=== PATIENT | female | born 1945 | race Caucasian/White ===

== ENCOUNTER 2021-09-07 12:27 | Observation (INO) | payer OTHER ==
--- OUTSIDE RECORDS SUMMARY | 2021-09-07 14:31 | XMS REPORT | Continuity of Care Document ---
:1945 Author Organization [facility] t Address [address] [place] [address] Care Team Providers Name Role Phone Shield Attending Clinician Unavailable Obisesan_adekunrossana Attending Clinician Unavailable PATEL_NILESH Attending Clinician Unavailable DERESKA Attending Clinician Unavailable Shield Admitting Clinician Unavailable Obisesan_adekunbi Admitting Clinician Unavailable PATEL_NILESH Admitting Clinician Unavailable Payers Payer Name Policy Type Policy Number Effective Date Expiration Date S adin [facility] [id number] [facility] [id number] (PPO) [employer] (MEDICARE [id number] REPLACEMENT/ADVANTAGE - PPO) [employer] (PPO) [id number] Problems Condition Condition Condition Status Onset Resolution Last Treating Co mments Source Name Details Category Date Date Treatment Clinician Date Diabetes Diabetes Problem Active [facility] [facility] mellitus Mellitus 02[facility]02 [facility] Hyperlipid Hyperlipid Problem Active [facility] emia emia 02-02 da 00:[facility] Peripheral Peripheral Problem Active [facility] vascular Vascular da disease Disease Medical Group Acute Acute Problem Active [facility] maxillary Maxillary da sinusitis Sinusitis Medi hossein Group Bacterial Bacterial Problem Active [facility] upper Upper da respirator Respirator Me dical y y Group infection Infection Upper Upper Problem Active [facility] respirator Respirator da y y Medical infection Infection Grou p Acute Acute Problem Active [facility] bronchitis Bronchitis [facility] Medical Group Sinusitis Sinusitis Problem Active [facility] Allergic Allergic Problem Active [facility] rhinitis Rhinitis [facility] Medical Group Bronchitis Bronchitis Problem Active [facility] Gastroesop Gastroesop Problem Active M [facility] hageal hageal da reflux Reflux Medical disease Disease Group Chronic Chronic Problem Active [facility] urinary Urinary da tract Tract Medical infection Infection Grou p Urinary Urinary Problem Active [place] tract Tract da infectious Infectious Me dical disease Disease Group Blood in Blood in Problem Active [facility] urine Urine da Medical Group Lesion of Lesion of Problem Active [facility] skin of Skin of da face Face Medical Group Osteoarthr Osteoarthr Problem Active [facility] itis of itis of da hip Hip Medical Group Osteoarthr Osteoarthr Problem Active [facility] itis of itis of da knee Knee Medical Group Bursitis Bursitis Problem Active [facility] of hip of Hip [facility] Medical Group Vertigo Vertigo Problem Active [facility] Fever Fever Problem Active [facility] Fatigue Fatigue Problem Active [facility] Paresthesi Paresthesi Problem Active [facility] a of skin a of Skin da Medical Group Eruption Eruption Problem Active [facility] Cough Cough Problem Active [facility] Chest pain Chest Pain Problem Active [facility] Diarrhea Diarrhea Problem Active [facility] Greater Greater Problem Active [facility] trochanter Trochanter da ic pain ic Pain Medical syndrome Syndrome Group Herpes Herpes Problem Active [facility] zoster Zoster [facility] Group Type 2 Type 2 Problem Active [facility] diabetes Diabetes da mellitus Mellitus Medica l Group Hyperchole Hyperchole Problem Active [facility] sterolemia sterolemia da Medical Group Carpal Carpal Problem Active [facility] tunnel Tunnel da syndrome Syndrome Medica l Group Neuropathy Neuropathy Problem Active [facility] due to Due to da diabetes Diabetes Medica l mellitus Mellitus Group Essential Essential Problem Active [facility] hypertensi Hypertensi da on on Medical Group Adjustment Adjustment Problem Active [facility] disorder Disorder da with with [facility] anxious Anxious al mood Mood Health Outreac h Program 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 [facility] depression Depression al Health [facility] 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 Anxiety da and and [facility] depressive Depressive al disorder Disorder Health Outreac h Program Hypertensi Hypertensi Problem Active [facility] ve ve da disorder Disorder [facility] Heart Heart Problem Active [facility] disease Disease da [facility] Gastric Gastric Problem Active [facility] reflux Reflux da [facility] Recurrent Recurrent Problem Active [facility] urinary Urinary da tract Tract [facility] infection Infection al [facility] 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 Vagina da [facility] History of History of Problem Active [facility] arthritis Arthritis da [facility] Obesity Obesity Problem Active [place] Allergies, Adverse Reactions, Alerts Allergy Allergy Status Severity Reaction(s) Onset Inactive Treating Comm ents Source Name Type Date Date Clinician Meperidi Allergy Active [place] ne to da substanc [facility] Demerol Allergy Active Severe Respiratory [facility] to distress da substanc Medical e Group Demerol drug Active Univers TABS allergy ity of [place] [facility] Family History Family Member Diagnosis Comments Start Date Stop Date Source Unknown Family Family history of Family History [facility] Member cardiac disorder [place] [facility] Unknown Family Family history of Family History [facility] Member essential [place] [facility] hypertension Unknown Family Family history of Family History [facility] Member Pelvic prolapse [place] [facility] Unknown Family Family history of Family History [facility] Member Fecal incontinence [place] [facility] Unknown Family Family history of Family History [facility] Member Urinary [place] [facility] incontinence Social History Smoking Status Start Date Stop Date Source Former Smoker [facility] Medications Ordered Filled Start Stop Current Ordering Indication Dosage Frequency Signature Comments Components Source Medication Medication Date Date Medication? Clinician (SIG) Name Name nitrofurant nitrofurant No nitrofuran [place] oin oin toin da monohydrate monohydrate monohydrat Medical /macrocryst /macrocryst e/macrocry Group als 100 mg als 100 mg stals 100 capsule capsule mg capsule TAKE 1 TAKE 1 TAKE 1 CAPSULE CAPSULE CAPSULE EVERY 12 EVERY 12 EVERY 12 HOURS BY HOURS BY HOURS BY ORAL ROUTE ORAL ROUTE ORAL ROUTE FOR 5 DAYS. FOR 5 DAYS. FOR 5 DAYS. Nitrostat Nitrostat No Nitrostat [facility] 0.4 mg 0.4 mg 0.4 mg da sublingual sublingual sublingual Medical tablet tablet tablet Group olmesartan olmesartan No olmesartan [place] 40 mg 40 mg 40 mg da tablet TAKE tablet TAKE tablet Medical 1 TABLET BY 1 TABLET BY TAKE 1 Group MOUTH EVERY MOUTH EVERY TABLET BY DAY DAY MOUTH EVERY DAY OneTouch OneTouch No OneTouch [facility] Delica Plus Delica Plus Delica da Lancet 33 Lancet 33 Plus Medic al gauge CHECK gauge CHECK Lancet 33 Group GLUCOSE 3 GLUCOSE 3 gauge TIMES A DAY TIMES A DAY CHECK FOR FOR GLUCOSE 3 DIABETES DIABETES TIMES A DAY FOR DIABETES OneTouch OneTouch No OneTouch [facility] Verio Verio Verio da Reflect Reflect Reflect Medica l Meter USE Meter USE Meter USE Group DIRECTED DIRECTED FOR GLUCOSE FOR GLUCOSE DIRECTED CHECK FOR CHECK FOR FOR DIABETES DIABETES GLUCOSE CHECK FOR DIABETES OneTouch OneTouch No OneTouch [facility] Verio test Verio test Verio test da strips strips strips Medical CHECK CHECK CHECK Group GLUCOSE GLUCOSE GLUCOSE ONCE DAILY ONCE DAILY ONCE DAILY Advair Advair No Advair [facility] Diskus 250 Diskus 250 Diskus 250 da mcg-50 mcg-50 mcg-50 [facility] mcg/dose mcg/dose mcg/dose al powder for powder for powder for Health inhalation inhalation inhalation Outreac h Program amlodipine amlodipine No amlodipine [facility] 2.5 mg 2.5 mg 2.5 mg da tablet TAKE tablet TAKE tablet [facility] 1 TABLET BY 1 TABLET BY TAKE 1 al MOUTH EVERY MOUTH EVERY TABLET BY Health DAY DAY MOUTH Outreac EVERY DAY h Program aripiprazol aripiprazol No aripiprazo [place] e 5 mg e 5 mg le 5 mg da tablet tablet tablet [facility] bupropion bupropion No bupropion [facility] HCl SR 150 HCl SR 150 HCl SR 150 da mg mg mg [facility] tablet,12 tablet,12 tablet,12 al hr hr hr Health sustained-r sustained-r sustained- Outreac elease TAKE elease TAKE release h 1 TABLET BY 1 TABLET BY TAKE 1 Program MOUTH TWICE MOUTH TWICE TABLET BY A DAY A DAY MOUTH TWICE A DAY clopidogrel clopidogrel No clopidogre [place] 75 mg 75 mg l 75 mg da tablet TAKE tablet TAKE tablet [facility] 1 TABLET BY 1 TABLET BY TAKE 1 al MOUTH EVERY MOUTH EVERY TABLET BY Health DAY DAY MOUTH Outreac EVERY DAY h Program duloxetine duloxetine No duloxetine [facility] 30 mg 30 mg 30 mg da capsule,del capsule,del capsule,de [facility] ayed ayed layed al release release release Health TAKE 1 TAKE 1 TAKE 1 Outreac CAPSULE BY CAPSULE BY CAPSULE BY h MOUTH EVERY MOUTH EVERY MOUTH Program DAY. TAKE DAY. TAKE EVERY DAY. WITH ONE WITH ONE TAKE WITH 60MG 60MG ONE 60MG CAPSULES CAPSULES CAPSULES DAILY DAILY DAILY duloxetine duloxetine No 1capsul Q1D duloxetine [facility] 60 mg 60 mg e(s) 60 mg da capsule,del capsule,del capsule,de [facility] ayed ayed layed al release release release Health Take 1 Take 1 Take 1 Outreac capsule capsule capsule h every day every day every day Program by oral by oral by oral route with route with route with meals for meals for meals for 90 days. 90 days. 90 days. take 1 60mg take 1 60mg take 1 cap along cap along 60mg cap with 30mg with 30mg along with cap to make cap to make 30mg cap total 90mg total 90mg to make per day. per day. total 90mg per day. hydroxyzine hydroxyzine No hydroxyzin [place] pamoate 25 pamoate 25 e pamoate da mg capsule mg capsule 25 mg [facility] TAKE 1 TAKE 1 capsule al CAPSULE(S) CAPSULE(S) TAKE 1 H ealth EVERY 12 EVERY 12 CAPSULE(S) O utreac HOURS HOURS EVERY 12 h BEFORE BEFORE HOURS Program MEALS MEALS BEFORE NEEDED FOR NEEDED FOR MEALS AGITATION AGITATION NEEDED FOR AGITATION Januvia 100 Januvia 100 No Januvia [facility] mg tablet mg tablet 100 mg da TAKE 1 TAKE 1 tablet [facility] TABLET BY TABLET BY TAKE 1 al MOUTH EVERY MOUTH EVERY TABLET BY Health DAY IN THE DAY IN THE MOUTH Ou treac MORNING MORNING EVERY DAY h IN THE Program MORNING metoprolol metoprolol No metoprolol [place] succinate succinate succinate da ER 50 mg ER 50 mg ER 50 mg Epi scop tablet,exte tablet,exte tablet,ext al nded nded ended Health release 24 release 24 release 24 Outreac hr TAKE 1 hr TAKE 1 hr TAKE 1 h TABLET BY TABLET BY TABLET BY Program MOUTH EVERY MOUTH EVERY MOUTH DAY DAY EVERY DAY olmesartan olmesartan No olmesartan [place] 40 mg 40 mg 40 mg da tablet TAKE tablet TAKE tablet [facility] 1 TABLET BY 1 TABLET BY TAKE 1 al MOUTH EVERY MOUTH EVERY TABLET BY Health DAY DAY MOUTH Outreac EVERY DAY h Program OneTouch OneTouch No OneTouch [facility] Delica Plus Delica Plus Delica da Lancet 33 Lancet 33 Plus [facility] gauge CHECK gauge CHECK Lancet 33 al GLUCOSE 3 GLUCOSE 3 gauge Heal th TIMES A DAY TIMES A DAY CHECK Outreac FOR FOR GLUCOSE 3 h DIABETES DIABETES TIMES A Prog juvenal DAY FOR DIABETES OneTouch OneTouch No OneTouch [facility] Verio Verio Verio da Reflect Reflect Reflect [facility] p Meter USE Meter USE Meter USE al DIRECTED DIRECTED H ealth FOR GLUCOSE FOR GLUCOSE DIRECTED Outreac CHECK FOR CHECK FOR FOR h DIABETES DIABETES GLUCOSE Prog juvenal CHECK FOR DIABETES OneTouch OneTouch No OneTouch [facility] Verio test Verio test Verio test da strips strips strips [facility] CHECK CHECK CHECK al GLUCOSE GLUCOSE GLUCOSE Health ONCE DAILY ONCE DAILY ONCE DAILY Outreac h Program pantoprazol pantoprazol No pantoprazo [place] e 40 mg e 40 mg le 40 mg da tablet,clinton tablet,clinton tablet,del [facility] yed release yed release ayed a l TAKE 1 TAKE 1 release Health TABLET BY TABLET BY TAKE 1 Out reac MOUTH DAILY MOUTH DAILY TABLET BY h 1 HOUR 1 HOUR MOUTH Program BEFORE FOOD BEFORE FOOD DAILY 1 HOUR BEFORE FOOD Prescriptio Prescriptio No Prescripti [place] n - New n - New on - New da [facility] propranolol propranolol No propranolo [place] ER 60 mg ER 60 mg l ER 60 mg d a capsule,24 capsule,24 capsule,24 [facility] hr,extended hr,extended hr,extende al release release d release Heal th TAKE 1 TAKE 1 TAKE 1 Outreac CAPSULE BY CAPSULE BY CAPSULE BY h MOUTH EVERY MOUTH EVERY MOUTH Program DAY DAY EVERY DAY rosuvastati rosuvastati No rosuvastat [place] n 10 mg n 10 mg in 10 mg da tablet TAKE tablet TAKE tablet [facility] 1 TABLET BY 1 TABLET BY TAKE 1 al MOUTH EVERY MOUTH EVERY TABLET BY Health DAY WITH DAY WITH MOUTH Outrea c MEALS MEALS EVERY DAY h WITH MEALS Program Rybelsus 7 Rybelsus 7 No Rybelsus 7 [facility] mg tablet mg tablet mg tablet da TAKE 1 TAKE 1 TAKE 1 [facility] TABLET TABLET TABLET al DAILY, 30 DAILY, 30 DAILY, 30 Health MINUTES MINUTES MINUTES Outrea c BEFORE BEFORE BEFORE h FIRST FIRST FIRST Program FOOD,DRINK, FOOD,DRINK, FOOD,DRINK OR OR , OR MEDICATION MEDICATION MEDICATION OF THE DAY OF THE DAY OF THE DAY Olmesartan Olmesartan Yes .A. Uni vers Medoxomil Medoxomil ity o f 40 MG Oral 40 MG Oral Jeffrey as Tablet Tablet Physici ans DULoxetine DULoxetine Yes M.A. Uni vers HCl - 30 MG HCl - 30 MG i ty of Oral Oral [place] Capsule Capsule Physici Delayed Delayed ans Release Release Particles Particles pantoprazol pantoprazol No pantoprazo [place] e 40 mg e 40 mg le 40 mg da tablet,clinton tablet,clinton tablet,del Medical yed release yed release ayed G roup TAKE 1 TAKE 1 release TABLET BY TABLET BY TAKE 1 MOUTH DAILY MOUTH DAILY TABLET BY 1 HOUR 1 HOUR MOUTH BEFORE FOOD BEFORE FOOD DAILY 1 HOUR BEFORE FOOD Clopidogrel Clopidogrel Yes M.A. U nivers Bisulfate Bisulfate ity o f 75 MG Oral 75 MG Oral Jeffrey as Tablet Tablet Physici ans propranolol propranolol No propranolo [place] ER 60 mg ER 60 mg l ER 60 mg d a capsule,24 capsule,24 capsule,24 Medical hr,extended hr,extended hr,extende Group release release d release TAKE 1 TAKE 1 TAKE 1 CAPSULE BY CAPSULE BY CAPSULE BY MOUTH EVERY MOUTH EVERY MOUTH DAY DAY EVERY DAY Pantoprazol Pantoprazol Yes .A. U nivers e Sodium 40 e Sodium 40 i ty of MG Oral MG Oral [place] Tablet Tablet Physici Delayed Delayed ans Release Release rosuvastati rosuvastati No rosuvastat [place] n 10 mg n 10 mg in 10 mg da tablet TAKE tablet TAKE tablet Medical 1 TABLET BY 1 TABLET BY TAKE 1 Group MOUTH EVERY MOUTH EVERY TABLET BY DAY WITH DAY WITH MOUTH MEALS MEALS EVERY DAY WITH MEALS Rosuvastati Rosuvastati Yes M.A. U nivers n Calcium n Calcium ity o f 10 MG Oral 10 MG Oral Jeffrey as Tablet Tablet Physici ans Rybelsus 7 Rybelsus 7 No Rybelsus 7 [facility] mg tablet mg tablet mg tablet da TAKE 1 TAKE 1 TAKE 1 Medical TABLET TABLET TABLET Group DAILY, 30 DAILY, 30 DAILY, 30 MINUTES MINUTES MINUTES BEFORE BEFORE BEFORE FIRST FIRST FIRST FOOD,DRINK, FOOD,DRINK, FOOD,DRINK OR OR , OR MEDICATION MEDICATION MEDICATION OF THE DAY OF THE DAY OF THE DAY Metoprolol Metoprolol Yes M.A. Uni vers Succinate Succinate ity o f ER 50 MG ER 50 MG [place] Oral Tablet Oral Tablet P hysici Extended Extended ans Release 24 Release 24 Hour Hour Karla Karla No 1 Q1D Karla [place] [facility] Allergy 180 Allergy 180 Allergy da mg tablet mg tablet 180 mg Med ical Take 1 Take 1 tablet Group tablet tablet Take 1 every day every day tablet by oral by oral every day route for route for by oral 30 days. 30 days. route for 30 days. Isosorbide Isosorbide Yes M.A. Uni vers Dinitrate Dinitrate ity o f 30 MG Oral 30 MG Oral Jeffrey as Tablet Tablet Physici ans amlodipine amlodipine No amlodipine [facility] 2.5 mg 2.5 mg 2.5 mg da tablet TAKE tablet TAKE tablet Medical 1 TABLET BY 1 TABLET BY TAKE 1 Group MOUTH EVERY MOUTH EVERY TABLET BY DAY DAY MOUTH EVERY DAY Aspirin 81 Aspirin 81 Yes M.A. Uni vers MG TABS MG TABS ity of [place] [facility] aripiprazol aripiprazol No aripiprazo [place] e 5 mg e 5 mg le 5 mg da tablet TAKE tablet TAKE tablet Medical 1 TABLET BY 1 TABLET BY TAKE 1 Group MOUTH EVERY MOUTH EVERY TABLET BY DAY DAY MOUTH EVERY DAY Janumet XR Janumet XR Yes M.A. Uni vers 100-1000 MG 100-1000 MG i ty of Oral Tablet Oral Tablet [place] Extended Extended Physici Release 24 Release 24 ans Hour Hour bupropion bupropion No bupropion [place] HCl SR 150 HCl SR 150 HCl SR 150 da mg mg mg Medical tablet,12 tablet,12 tablet,12 Group hr hr hr sustained-r sustained-r sustained- elease TAKE elease TAKE release 1 TABLET BY 1 TABLET BY TAKE 1 MOUTH TWICE MOUTH TWICE TABLET BY A DAY A DAY MOUTH TWICE A DAY hydrOXYzine hydrOXYzine Yes M.A. U nivers HCl - 25 MG HCl - 25 MG i ty of Oral Tablet Oral Tablet [place] [facility] clopidogrel clopidogrel No clopidogre [facility] 75 mg 75 mg l 75 mg da tablet TAKE tablet TAKE tablet Medical 1 TABLET BY 1 TABLET BY TAKE 1 Group MOUTH EVERY MOUTH EVERY TABLET BY DAY DAY MOUTH EVERY DAY duloxetine duloxetine No duloxetine [place] 30 mg 30 mg 30 mg da capsule,del capsule,del capsule,de Medical ayed ayed layed Group release release release TAKE 1 TAKE 1 TAKE 1 CAPSULE BY CAPSULE BY CAPSULE BY MOUTH EVERY MOUTH EVERY MOUTH DAY DAY EVERY DAY duloxetine duloxetine No duloxetine [place] 60 mg 60 mg 60 mg da capsule,del capsule,del capsule,de Medical ayed ayed layed Group release release release TAKE 1 TAKE 1 TAKE 1 CAPSULE CAPSULE CAPSULE EVERY DAY EVERY DAY EVERY DAY BY ORAL BY ORAL BY ORAL ROUTE WITH ROUTE WITH ROUTE WITH MEALS FOR MEALS FOR MEALS FOR 90 DAYS. 90 DAYS. 90 DAYS. hydroxyzine hydroxyzine No hydroxyzin [place] pamoate 25 pamoate 25 e pamoate da mg capsule mg capsule 25 mg Me dical TAKE 1 TAKE 1 capsule Group CAPSULE(S) CAPSULE(S) TAKE 1 EVERY 12 EVERY 12 CAPSULE(S) HOURS HOURS EVERY 12 BEFORE BEFORE HOURS MEALS MEALS BEFORE NEEDED FOR NEEDED FOR MEALS AGITATION AGITATION NEEDED FOR AGITATION isosorbide isosorbide No isosorbide [place] mononitrate mononitrate mononitrat da ER 30 mg ER 30 mg e ER 30 mg M edical tablet,exte tablet,exte tablet,ext Group nded nded ended release 24 release 24 release 24 hr hr hr meclizine meclizine No meclizine [place] 25 mg 25 mg 25 mg da tablet TAKE tablet TAKE tablet Medical 1 TABLET BY 1 TABLET BY TAKE 1 Group MOUTH MOUTH TABLET BY EVERYDAY AT EVERYDAY AT MOUTH BEDTIME BEDTIME EVERYDAY AT BEDTIME Nasonex 50 Nasonex 50 No Nasonex 50 [place] mcg/actuati mcg/actuati mcg/actuat da [place] [facility] dical Group Immunizations Ordered Immunization Filled Immunization Date Status Commen ts Source Name Name influenza, influenza, 2019-05-16 Completed [facility] injectable, injectable, 00:00:00 [facility] quadrivalent quadrivalent [facility] influenza, seasonal, influenza, seasonal, 2014-09-18 Completed [facility] injectable, injectable, 00:00:00 Medical Grou p preservative free preservative free pneumococcal pneumococcal 2014-09-18 Completed [facility] polysaccharide PPV23 polysaccharide PPV23 00:00:00 Medical Group influenza, influenza, 2012-09-18 Completed [facility] recombinant, recombinant, 00:00:00 Medical Gr oup injectable, injectable, preservative free preservative free pneumococcal, pneumococcal, 2005-09-18 Completed [place] a unspecified unspecified 00:00:00 Medical Grou p formulation formulation Vital Signs Vital Name Observation Time Observation Value Comments Source BP Diastolic 2021-06-24 69 mm[Hg] [facility] al 00:00:00 Group Height 2021-06-24 62 [in_i] [facility] 00:00:00 Group BMI (Body Mass 2021-06-24 30 kg/m2 [facility] Med ical Index) 00:00:00 Group BP Systolic 2021-06-24 152 mm[Hg] [facility] 00:00:00 Group Body Weight 2021-06-24 164 [lb_av] [facility] 00:00:00 Group BP Diastolic 2021-05-13 63 mm[Hg] [facility] 00:00:00 Group Height 2021-05-13 62 [in_i] [facility] 00:00:00 Group BMI (Body Mass 2021-05-13 30.5 kg/m2 [facility] Med ical Index) 00:00:00 Group BP Systolic 2021-05-13 102 mm[Hg] [facility] 00:00:00 Group Body Weight 2021-05-13 166.9 [lb_av] [facility] Medi hossein 00:00:00 Group BP Diastolic 2021-03-18 75 mm[Hg] [facility] 00:00:00 [facility] Height 2021-03-18 61 [in_i] [facility] 00:00:00 [facility] BMI (Body Mass 2021-03-18 34.2 kg/m2 [facility] Index) 00:00:00 [facility] BP Systolic 2021-03-18 120 mm[Hg] [facility] 00:00:00 [facility] Body Weight 2021-03-18 2896 [oz_av] [facility] 00:00:00 [facility] BP Diastolic 2021-03-11 71 mm[Hg] [facility] 00:00:00 [facility] Height 2021-03-11 61 [in_i] [facility] 00:00:00 [facility] BMI (Body Mass 2021-03-11 33.8 kg/m2 [facility] Index) 00:00:00 [facility] BP Systolic 2021-03-11 129 mm[Hg] [facility] 00:00:00 [facility] Body Weight 2021-03-11 2864 [oz_av] [facility] 00:00:00 [facility] BP Diastolic 2021-02-04 67 mm[Hg] [facility] 00:00:00 [facility] Height 2021-02-04 61 [in_i] [facility] 00:00:00 [facility] BMI (Body Mass 2021-02-04 34.2 kg/m2 [facility] Index) 00:00:00 [facility] BP Systolic 2021-02-04 130 mm[Hg] [facility] 00:00:00 [facility] Body Weight 2021-02-04 181.2 [lb_av] [facility] 00:00:00 [facility] BP Diastolic 2021-02-02 73 mm[Hg] [facility] 00:00:00 [facility] Height 2021-02-02 61 [in_i] [facility] 00:00:00 [facility] BMI (Body Mass 2021-02-02 34.6 kg/m2 [facility] Index) 00:00:00 [facility] BP Systolic 2021-02-02 143 mm[Hg] [facility] 00:00:00 [facility] Body Weight 2021-02-02 2928 [oz_av] [facility] 00:00:00 [facility] BP Diastolic 2021-01-22 74 mm[Hg] [facility] 00:00:00 [facility] Height 2021-01-22 61 [in_i] [facility] 00:00:00 [facility] BMI (Body Mass 2021-01-22 33.8 kg/m2 [facility] Index) 00:00:00 [facility] BP Systolic 2021-01-22 110 mm[Hg] [facility] 00:00:00 [facility] Body Weight 2021-01-22 2864 [oz_av] [facility] 00:00:00 [facility] BP Systolic 2019-08-23 130 mm[Hg] Location: [facility] 14:04:00 Position: [place] [facility] Sitting BP Diastolic 2019-08-23 78 mm[Hg] Location: [facility] 14:04:00 Position: [place] [facility] Sitting Height 2019-08-23 61 [in_us] [facility] 14:04:00 [place] [facility] Weight 2019-08-23 170 [lb_av] [facility] 14:04:00 [place] [facility] Body Mass Index 2019-08-23 32.12 kg/m2 [facility] 14:04:00 [place] [facility] BP Systolic 2019-05-08 180 mm[Hg] Location: [facility] 13:53:00 Position: [place] [facility] Sitting BP Diastolic 2019-05-08 74 mm[Hg] Location: [facility] 13:53:00 Position: [place] [facility] Sitting Height 2019-05-08 61 [in_us] [facility] 13:53:00 [place] [facility] Weight 2019-05-08 170 [lb_av] [facility] 13:53:00 [place] [facility] Body Mass Index 2019-05-08 32.12 kg/m2 [facility]culated 13:53:00 [place] [facility] Procedures Procedure Date / Time Performing Clinician Source Performed MRI, internal auditory 2021-06-24 00:00:00 Tara arceo [facility], w/wo contrast Group MAMMO, screening, digital, 2021-02-04 00:00:00 M kaylin [facility] DXA BONE DENSITY, AXIAL 2021-02-04 00:00:00 Fidel wilson [facility] [QL] CULTURE, URINE, 2019-08-23 00:00:00 Dena barney [facility] ROUTINE Physicians [[facility]] CULTURE, URINE, 2019-05-08 00:00:00 [facility] ROUTINE Physicians CT Abdomen/Pelvis w/wo 2019-05-08 00:00:00 [facility] contrast [id number] Physicians Other 2008-09-18 00:00:00 [facility] Colonoscopy 2003-09-18 00:00:00 [facility] Insertion of Stent into 1999-09-18 00:00:00 Fidel wilson [facility] History of Hysterectomy [facility] abdominal Physicians History of Knee [facility] Replacement Physicians History of Cystocele [facility] repair Physicians History of Oophorectomy - [facility] Unilateral (Removal Of One Physi cians Ovary) History of Angioplasty [facility] Physicians History of Cath Placement [facility] Stent 1 Physicians History of Cholecystectomy [facility] Physicians History of [employer] section Physicians Cardiac [facility] Back [facility] Caesarean Section [facility] Cholecystectomy [facility]rectomy [facility] Knee [facility] Total Hysterectomy [facility] Arthroplasty of Knee [facility] Repair of Cystocele [facility] Delivery [facility] Plan of Care Planned Activity Planned Date Details Comments Source Future Appointment 2021-12-23 Williams Conde, [address] [facility] 09:15[facility]00 [facility]; Group [address], [place] [address] Encounters Start End Encounter Admission Attending Care Care Encounter Source Date/Time Date/Time Type Type Clinicians Facility Department ID 2021-08-09 2021-08-09 Outpatient Shield [facility]G [id number] [place] 03:53:00 03:53:00 122 da [facility] 2021-07-13 2021-07-13 Outpatient Obisesan_ad [facility] [place] 102 [id number] [place] 12:08:00 12:08:00 ekunbi [id number] [facility] 2021-06-24 2021-06-24 Outpatient Shield MMG MMG [id number] [place] 09:56:00 09:56:00 007 Medical Group 2021-06-24 2021-06-24 [place] - [id number] [place] 00:00:00 00:00:00 : Sarath Perez [facility] Network Group [address], [facility], [place] [address] , Ph. 2021-05-22 2021-05-22 Outpatient Obisesan_ad MEHOP [facility] 102 [id number] [place] 09:57:00 09:57:00 ekunbi [id number] [facility] 2021-05-22 2021-05-22 Outpatient Obisesan_ad IDHOP [facility] 102 [id number] [place] 09:56:00 09:56:00 ekunbi 13220 [facility] 2021-05-22 2021-05-22 [facility] [place] - [id number] [place] 00:00:00 00:00:00 MD Santino: Gabo hull 1700 Judaism Episco p [facility] [address] h , Ph. Program [phone]) -[phone] 2021-05-21 Outpatient Obisesan_ad [facility] [place] 102 [id number] [place] 09:19:00 09:19:00 ekunbi [id number] [facility] 2021-05-13 2021-05-13 Outpatient Shield [facility] [id number] [place] 03:40:00 03:40:00 826 Medical Group 2021-05-13 2021-05-13 [place] - [id number] [place] 00:00:00 00:00:00 : Sarath Perez [facility] Group [address], [facility], [place] ogabelardo-HEMANTH [address] , Ph. 2021-05-10 2021-05-10 Outpatient [facility] MMG MMG [id number] [place] 10:19:00 10:19:00 823 Medical Group 2021-03-18 2021-03-18 Outpatient Obisesan_ad MEHOP [facility] 102 [id number] [place] 03:34:00 03:34:00 ekunbi [id number] [facility] 2021-03-18 2021-03-18 [facility] [place] [facility] [id number] [place] 00:00:00 00:00:00 Gabo Bui da GEOPHYSICS SCIENTIST: 1700 Judaism Episc op [facility] [address], [facility] [address] h , Ph. Program 2021-03-12 2021-03-12 Outpatient Obisesan_ad ME[facility]OP [facility] 102 [id number] [place] 08:39:00 08:39:00 ekunrossana 95501 [facility] 2021-03-11 2021-03-11 Outpatient Obisesan_ad ID[facility]OP [facility] 102 [id number] [place] 05:28:00 05:28:00 ekunbi [id number] [facility] 2021-03-11 2021-03-11 Nil[place] - [id number] [place] 00:00:00 00:00:00 Gabo Bui da GEOPHYSICS SCIENTIST: 1700 Judaism Episc op [facility] [address], [place] Outre [address] h , Ph. Program 2021-03-09 2021-03-09 Outpatient Obisesan_ad ME[facility]OP [facility] 102 [id number] [place] 08:47:00 08:47:00 ekunbi [id number] [facility] 2021-02-24 2021-02-24 Outpatient Obisesan_ad MEHOP [facility] 102 [id number] [place] 11:25:00 11:25:00 ekunbi [id number] [facility] 2021-02-24 2021-02-24 Kim [place] - [id number] [place] 00:00:00 00:00:00 Johanne bray, DYE WINCH OPERATOR: Judaism Episco p 1700 [facility] [place] tal[facility] [address] Andrew walton , Ph. ([phone]) 2021-02-09 2021-02-09 Outpatient Obisesan_ad [facility] [place] 102 [id number] [place] 11:33:00 11:33:00 ekunbi 42692 [facility] 2021-02-04 2021-02-04 Outpatient Obisesan_ad [facility] [place] 102 [id number] [place] 04:12:00 04:12:00 ekunbi [id number] [facility] 2021-02-04 2021-02-04 Cayla [place] - [id number] [place] 00:00:00 00:00:00 Lu Nava, Judaism Episco p GEOPHYSICS SCIENTIST: 111 HOP [facility] F N, DANCE HALL HOSTESS [facility] [address] Andrew walton , Ph. 2021-02-03 2021-02-03 Outpatient Obisesan_ad [facility]OP [place] 102 [id number] [place] 05:02:00 05:02:00 ekunbi [id number] [facility] 2021-02-02 2021-02-02 Outpatient Obisesan_ad [facility] [place] 102 [id number] [place] 03:53:00 03:53:00 ekunbi 88597 [facility] 2021-02-02 2021-02-02 Loidakunbi [place] - [id number] [place] 00:00:00 00:00:00 Gabo Bui GEOPHYSICS SCIENTIST: 1700 Judaism Episc op [facility] [address] h , Ph. Program 2021-02-01 2021-02-01 Outpatient Obisesan_ad MEHOP [facility] 102 [id number] [place] 12:28:00 12:28:00 ekunbi 99735 [facility] 2021-01-29 2021-01-29 Outpatient Obisesan_ad MEHOP [facility] 102 [id number] [place] 11:08:00 11:08:00 ekunbi 76192 [facility] 2021-01-27 2021-01-27 Outpatient Obisesan_ad ME[facility]OP [facility] 102 [id number] [place] 09:23:00 09:23:00 ekunbi 31758 [facility] 2021-01-23 2021-01-23 Outpatient Obisesan_ad MEHOP [facility] 102 [id number] [place] 05:01:00 05:01:00 ekunbi [id number] [facility] 2021-01-22 2021-01-22 Outpatient Obisesan_ad IDHOP [facility] 102 [id number] [place] 07:52:00 07:52:00 ekunbi [id number] [facility] 2021-01-22 2021-01-22 Adealysiaunrossana [place] - [id number] [place] 00:00:00 00:00:00 Gabo Bui da GEOPHYSICS SCIENTIST: 1700 Judaism Episc op [facility] [address] h , Ph. Program 2020-08-05 2020-08-05 Outpatient Shield MMG [facility] [id number] [place] 02:31:00 02:31:00 118 da Medical Group 2020-05-21 2020-05-21 Outpatient PATEL_NILES IDHOP ID[facility] 102 [id number] [place] 11:22:00 11:22:00 H [id number] [facility] 2020-05-20 2020-05-20 Outpatient PATEL_NILES IDHOP [facility] 102 [id number] [place] 06:11:00 06:11:00 H [id number] [facility] 2020-05-20 2020-05-20 Kim [place] - [id number] Tana atagor 00:00:00 00:00:00 Johanne bray, DYE WINCH OPERATOR: Judaism Episco p [facility] [address] [facility] , Ph. [phone]) --20072019-08-23 2019-08-23 AppointTRACI Mosley Urogynecolo 58 [id number] Univers 14:30:00 14:30:00 t; Dontae MCMAHAN Center - [facility] of [place], [place] Jeffreya s Dontae MCMAHAN Physi ci ans 2019-08-23 2019-08-23 AppointTRACI Mosley Urogynecojulita 58 [id number] Univers 14:10:00 14:10:00 t; Dontae MCMAHAN Center - [facility] of [place], [place] Jeffreya s Dontae MCMAHAN Physi ci ans 2019-08-09 2019-08-09 Kim [facility] [id number] [place] 00:00:00 00:00:00 Johanne bray, DYE WINCH OPERATOR: Judaism Episco p 1700 [facility], Health [facility] [address] , Ph. [phone] -[phone] 2019-07-03 AppointTRACI Mosley Urogynecolo 57 [id number] Univers 09:50:00 09:50:00 t; Dontae MCMAHAN Center - [facility] of [place], [place] rodrigue MCMAHAN M.D. Physi ci ans 2019-07-03 2019-07-03 AppointTRACI Mosley UTP [id number] Univers 09:00:00 09:00:00 t; Dontae MCMAHAN of Greta SALAZAR M.D. Physi ci ans 2019-06-07 2019-06-07 AppointTRACI Mosley Urogynecolo 56 [id number] Univers 13:50:00 13:50:00 t; Dontae MCMAHAN Center - [facility] of [place], [place] ro[place] MCMAHAN M.D. Physi ci ans 2019-05-08 2019-05-08 Appointmen MARIE TRACI Urogyneomaha 55 [id number] Univers 13:40:00 13:40:00 t; Dontae MCMAHAN [facility] YASMINESOFIMelodieCarlene rodrigue MCMAHAN M.D. Physi ci ans 2019-02-09 2019-02-09 Bryn Jarvis [place] - [id number] [place] 00:00:00 00:00:00 MD Santino: Gabo hull 1700 Judaism Episco p [place] [address], Behavioral [facility] [address] [facility] , Ph. [phone] -[phone] 2018-11-06 Outpatient [facility] MM MM [id number] [place] 03:30:00 03:30:00 102 Medical Group 2018-08-17 2018-08-17 Bryn J [place] - [id number] [place] 00:00:00 00:00:00 MD Santino: Gabo hull 1700 Judaism Episco p [place] HOP - ME[facility]OP [address], [address], Behavioral [facility] [address] [facility] , Ph. ([phone]) 2018-07-12 2018-07-12 Kim [facility] [place] - [id number] [place]or 00:00:00 00:00:00 Enrique-Marquis Gabo bray, DYE WINCH OPERATOR: Judaism Episco p 1700 HOP - MEHOP al [facility] [address], Health [facility] [address] , Ph. [phone] -[phone] Results Test Description Test Time Test Comments Results Result Comments Source Comprehensive metabolic 2000 panel - Serum or Plasma 2021-02 00:00:00 Test Item Value Reference Range Interpretation Comme nts Glucose [Mass/volume] in Serum or Plasma (test code = 191 mg/dL 65-99 H 2345-7) Urea nitrogen [Mass/volume] in Serum or Plasma (test 17 mg/dL 8 -27 code = 3094-0) Creatinine [Mass/volume] in Serum or Plasma (test code = 0.94 mg/dL 0.57-1.00 2160-0) Glomerular filtration rate/1.73 sq M.predicted among 59 mL/min/1.73 >59 L non-blacks [Volume Rate/Area] in Serum, Plasma or Blood by Creatinine-based formula (CKD-EPI) (test code = 40036-9) Glomerular filtration rate/1.73 sq M.predicted among 68 mL/min/1.73 >59 blacks [Volume Rate/Area] in Serum, Plasma or Blood by Creatinine-based formula (CKD-EPI) (test code = 40758-2) Urea nitrogen/Creatinine [Mass Ratio] in Serum or Plasma 18 - (test code = 3097-3) Sodium [Moles/volume] in Serum or Plasma (test code = 139 mmol/L 256-346 8389-2) Potassium [Moles/volume] in Serum or Plasma (test code = 4.8 mmol/L 3.5-5.2 3-3) Chloride [Moles/volume] in Serum or Plasma (test code = 102 mmol/L 96-106 2074-0) Carbon dioxide, total [Moles/volume] in Serum or Plasma 24 mmol/L 20-29 (test code = 2027-9) Calcium [Mass/volume] in Serum or Plasma (test code = 9.6 mg/dL 8.7-10.3 13468-7) Protein [Mass/volume] in Serum or Plasma (test code = 6.4 g/dL 6.0-8.5 5-2) Albumin [Mass/volume] in Serum or Plasma (test code = 4.3 g/dL 3.7-4.7 1750-7) Globulin [Mass/volume] in Serum by calculation (test 2.1 g/dL 1 .5-4.5 code = 47233-3) Albumin/Globulin [Mass Ratio] in Serum or Plasma (test 2.0 1.2-2.2 code = 1759-0) Bilirubin.total [Mass/volume] in Serum or Plasma (test 0.4 mg/dL 0.0-1.2 code = 1974-2) Alkaline phosphatase [Enzymatic activity/volume] in 57 IU/L 48 -121 Serum or Plasma (test code = 6768-6) Aspartate aminotransferase [Enzymatic activity/volume] 27 IU/L 0-40 in Serum or Plasma (test code = 1920-8) Alanine aminotransferase [Enzymatic activity/volume] in 23 IU/L 0-32 Serum or Plasma (test code = 1742-6) [facility] - Serum or [id number] 00:00:00 Test Item Value Reference Range Interpretation Comments Thyrotropin [Units/volume] in 3.790 uIU/mL 0.450-4.500 Serum or Plasma by Detection limit <= 0.005 mIU/L (test code = 98886-3) Thyroxine (T4) free 1.19 NG/dL 0.82-1.77 [Mass/volume] in Serum or Plasma (test code = 3024-7) [facility] Children[facility] W Auto Differential panel - Blood 2021-03-13 00:00:00 Test Item Value Reference Range Interpretation Comments Leukocytes [#/volume] in Blood 7.9 x10e3/uL 3.4-10.8 by Automated count (test code = 6690-2) Erythrocytes [#/volume] in 4.25 x10e6/uL 3.77-5.28 Blood by Automated count (test code = 789-8) Hemoglobin [Mass/volume] in 13.2 g/dL 11.1-15.9 Blood (test code = 718-7) Hematocrit [Volume Fraction] of 38.6 % 34.0-46.6 Blood by Automated count (test code = 4544-3) MCV [Entitic volume] by 91 fL 79-97 Automated count (test code = 787-2) MCH [Entitic mass] by Automated 31.1 pg 26.6-33.0 count (test code = 785-6) MCHC [Mass/volume] by Automated 34.2 g/dL 31.5-35.7 count (test code = 786-4) Erythrocyte distribution width 13.0 % 11.7-15.4 [Ratio] by Automated count (test code = 788-0) Platelets [#/volume] in Blood 175 x10e3/uL 150-450 by Automated count (test code = 777-3) Neutrophils/100 leukocytes in 66 % not estab. Blood by Automated count (test code = 770-8) Lymphocytes/100 leukocytes in 23 % not estab. Blood by Automated count (test code = 736-9) Monocytes/100 leukocytes in 7 % not estab. Blood by Automated count (test code = 5905-5) Eosinophils/100 leukocytes in 2 % not estab. Blood by Automated count (test code = 713-8) Basophils/100 leukocytes in 1 % not estab. Blood by Automated count (test code = 706-2) immature cells (test code = forest technology professor immature cells) Neutrophils [#/volume] in Blood 5.3 x10e3/uL 1.4-7.0 by Automated count (test code = 751-8) Lymphocytes [#/volume] in Blood 1.8 x10e3/uL 0.7-3.1 by Automated count (test code = 731-0) Monocytes [#/volume] in Blood 0.5 x10e3/uL 0.1-0.9 by Automated count (test code = 742-7) Eosinophils [#/volume] in Blood 0.1 x10e3/uL 0.0-0.4 by Automated count (test code = 711-2) Basophils [#/volume] in Blood 0.1 x10e3/uL 0.0-0.2 by Automated count (test code = 704-7) Immature granulocytes/100 1 % not estab. leukocytes in Blood by Automated count (test code = 10297-4) Immature granulocytes 0.1 x10e3/uL 0.0-0.1 [#/volume] in Blood by Automated count (test code = 45901-1) Nucleated erythrocytes/100 forest technology professor leukocytes [Ratio] in Blood by Automated count (test code = 95643-3) Morphology [Interpretation] in forest technology professor Blood Narrative (test code = 45257-7) [facility] panel - Serum or Plasma 2021-03-13 00:00:00 Test Item Value Reference Range Interpretation Comments Cholesterol [Mass/volume] in Serum 119 mg/dL 100-199 or Plasma (test code = 2093-3) Triglyceride [Mass/volume] in Serum 138 mg/dL 0-149 or Plasma (test code = 2571-8) Cholesterol in HDL [Mass/volume] in 48 mg/dL >39 Serum or Plasma (test code = 2085-9) Cholesterol in VLDL [Mass/volume] 24 mg/dL 5-40 in Serum or Plasma by calculation (test code = 33620-7) Cholesterol in LDL [Mass/volume] in 47 mg/dL 0-99 Serum or Plasma by calculation (test code = 54400-1) Laboratory comment [Text] in Report forest technology professor Narrative (test code = 59894-9) [facility] Children[facility]/Creatinine [Mass Ratio] in [id number] 00:00:00 Test Item Value Reference Range Interpretation Comments Creatinine [Mass/volume] in 72.1 mg/dL not estab. Urine (test code = 2161-8) Microalbumin [Mass/volume] in 6.6 ug/mL not estab. Urine (test code = 92044-1) Albumin/Creatinine [Mass ratio] 9 mg/g creat 0-29 in Urine (test code = 9318-7) [facility] Childrencardiovascular assessment panel, [id number] 00:00:00 Test Item Value Reference Range Interpretation Comments Interpretation and review of note laboratory results (test code = 76070-4) Report (test code = 00976-8) not applicable [facility] Childrenlitholink CKD [id number] 00:00:00 Test Item Value Reference Range Interpretation Comments Report (test code = 03822-7) note Interpretation and review of laboratory . results (test code = 72089-1) [facility] ChildrenHemoglobin A1c/Hemoglobin.total in [id number] 00:00:00 Test Item Value Reference Range Interpretation Comments Hemoglobin A1c/Hemoglobin.total in 7.7 % 4.8-5.6 H Blood (test code = 4548-4) Glucose mean value [Mass/volume] in 174 mg/dL Blood Estimated from glycated hemoglobin (test code = 51336-6) [facility] Childrendiabetes patient [id number] 00:00:00 Test Item Value Reference Range Interpretation Comments pdf (test code = pdf) not applicable [facility] ChildrenCytology report of Cervical or vaginal smear or scraping Cyto stain.thin [id number] 00:00:00 Test Item Value Reference Range Interpretation Comments age gdln acog testing (test code = comment age gdln acog testing) Cytology report of Cervical or comment vaginal smear or scraping Cyto stain (test code = 83288-7) Statement of adequacy comment [Interpretation] of Cervical or vaginal smear or scraping by Cyto stain (test code = 20215-7) Usps Letter Carrier who read Cyto stain of comment Cervical or vaginal smear or scraping (test code = 82503-5) Microscopic observation [Identifier] . in Unspecified specimen by Other stain (test code = 95142-9) note: (test code = note:) comment Cytology report of Cervical or comment vaginal smear or scraping Cyto stain.thin prep (test code = 49556-6) Chlamydia trachomatis rRNA negative negative [Presence] in Cervix by GABRIELE with probe detection (test code = 76102-1) Neisseria gonorrhoeae rRNA negative negative [Presence] in Cervix by GABRIELE with probe detection (test code = 30256-0) Trichomonas vaginalis rRNA negative negative [Presence] in Unspecified specimen by GABRIELE with probe detection (test code = 24281-9) [facility] ChildrenBacteria identified in Urine by [id number] 00:00:00 Test Item Value Reference Range Interpretation Comments Bacteria identified in Urine by no growth Culture (test code = 630-4) [facility] ChildrenUrinalysis macro (dipstick) panel - [id number] 10:00:00 Test Item Value Reference Range Interpretation Comments Leukocytes (test code = Leukocytes) small Nitrite (test code = Nitrite) neg Urobilinogen (test code = Urobilinogen) 0.2 Protein (test code = Protein) neg pH (test code = pH) 6.0 Blood (test code = Blood) neg Specific [place] (test code = Specific 1.015 [place]) Ketone (test code = Ketone) neg Bilirubin (test code = Bilirubin) neg Glucose (test code = Glucose) neg [facility] ChildrenUrinalysis macro (dipstick) panel - [id number] 10:00:00 Test Item Value Reference Range Interpretation Comments Leukocytes (test code = Leukocytes) small Nitrite (test code = Nitrite) neg Urobilinogen (test code = Urobilinogen) 0.2 Protein (test code = Protein) neg pH (test code = pH) 6.0 Blood (test code = Blood) neg Specific [place] (test code = Specific 1.015 [place]) Ketone (test code = Ketone) neg Bilirubin (test code = Bilirubin) neg Glucose (test code = Glucose) neg [facility] ChildrenBacteria identified in Urine by [id number] 00:00:00 Test Item Value Reference Range Interpretation Comments Bacteria identified in Urine by no growth Culture (test code = 630-4) [facility] ChildrenBacteria identified in Urine by [id number] 00:00:00 Test Item Value Reference Range Interpretation Comments Bacteria identified in Urine by no growth Culture (test code = 630-4) [facility][O] Urine Dipstick (In Office) 2019-08-23 15:33:00 Test Item Value Reference Range Interpretation Comments Glucose (test code = Glucose) NEG N LEUKOCYTES (test code = LEUKOCYTES) NEG N NITRITE; Normal (test code = 36336-6) NEG N UROBILINOGEN; Normal (test code = 0.2 N 41017-3) PROTEIN; Normal (test code = 00261-0) NEG N pH (test code = pH) 6.0 N URINE BLOOD; Normal (test code = NEG N 86321-0) SPECIFIC GRAVITY; Normal (test code = 1.015 N 2965-2) KETONES; Normal (test code = 71989-4) NEG N BILIRUBIN; Normal (test code = 27153-0) NEG N [facility]] CULTURE, URINE, [id number] 15:00:01 Test Item Value Reference Range Interpretation Comments FINAL REPORT (test code = FINAL No Growth REPORT) [facility]] CULTURE, URINE, [id number] 14:30:01 Test Item Value Reference Range Interpretation Comments FINAL REPORT (test code = FINAL No Growth REPORT) [facility][O] Urine Dipstick (In Office)2019-05-08 14:30:00 Test Item Value Reference Range Interpretation Comments Glucose (test code = Glucose) NEG N LEUKOCYTES (test code = LEUKOCYTES) NEG N NITRITE; Normal (test code = 71046-0) NEG N UROBILINOGEN; Normal (test code = 0.2 N 30091-6) PROTEIN; Normal (test code = 45844-2) NEG N pH (test code = pH) 6.0 N URINE BLOOD; Normal (test code = NEG N 33681-7) SPECIFIC GRAVITY; Normal (test code = 1.005 N 2965-2) KETONES; Normal (test code = 17615-6) NEG N BILIRUBIN; Normal (test code = 55435-9) NEG N [facility]
[2021-09-07 15:43] VITALS: BMI 29.6
[2021-09-07 15:53] LABS: Absolute Lymphocytes (CBC) 1.6 K/uL (0.7-4.9); Basophils % 0.6 % (0-1.3); Hematocrit 39.8 % (36.0-45.0); Lymphocytes % 22.1 % (15.3-44.8); MPV 9.2 fL (7.6-11.3); RBC Red Blood Cell Count 4.42 M/uL (3.86-4.86)
[2021-09-07 15:56] LABS: Protime INR 1.03
[2021-09-07] MEDS ORDERED: DIPHENHYDRAMINE 25 MG TAB/CAP PO PRN (16:00)
[2021-09-07] MEDS ORDERED: ONDANSETRON 4 MG/2 ML VIAL IV PRN (16:00)
[2021-09-07] MEDS ORDERED: NACHLORIDE 0.45% 1,000 ML IV SCH (16:00)
[2021-09-07] MEDS ORDERED: ONDANSETRON 4 MG (ODT) TAB PO PRN (16:00)
[2021-09-07] MEDS ORDERED: POLYETHYL GLY 3350 17 GM/DOSE PO PRN (16:00)
[2021-09-07] MEDS ORDERED: ACETAMINOPHEN 325 MG TABLET PO PRN (16:00)
[2021-09-07] MEDS ORDERED: LOPERAMIDE HCL 2 MG CAPSULE PO PRN (16:00)
[2021-09-07 16:33] LABS: Albumin 3.3 g/dL (3.4-5.0); Bilirubin Direct 0.2 mg/dL (0-0.2); Bilirubin Total 0.4 mg/dL (0.2-1.0); Magnesium 1.9 mg/dL (1.8-2.4); Phosphorus 2.8 mg/dL (2.5-4.9); Potassium 3.8 mmol/L (3.5-5.1); Thyroid Stimulating Hormone 3.57 uIU/mL (0.360-3.740)
--- NOTE | 2021-09-07 17:04 | RAD REPORT ---
EXAM DESCRIPTION: RAD - Pelvis - 09/07/2021 4:48 pm CLINICAL HISTORY: fall COMPARISON: Chest Pa And Lat (2 Views) dated 09/07/2021 FINDINGS: No acute fracture. No malalignment. Bilateral degenerative changes of the acetabula. IMPRESSION: No acute osseous abnormality involving the pelvis.
--- NOTE | 2021-09-07 17:05 | RAD REPORT ---
EXAM DESCRIPTION: RAD - Shoulder Left 2 View - 09/07/2021 4:48 pm CLINICAL HISTORY: Fall COMPARISON: No comparisons FINDINGS: No acute fracture. High-riding humeral head may indicate rotator cuff pathology. Left AC j oint and glenohumeral joint degenerative changes. IMPRESSION: No acute osseous abnormality involving the left shoulder.
--- NOTE | 2021-09-07 17:05 | RAD REPORT ---
EXAM DESCRIPTION: RAD - Chest Pa And Lat (2 Views) - 09/07/2021 4:48 pm CLINICAL HISTORY: fall COMPARISON: Chest Pa And Lat (2 Views) dated 02/14/2017; CHEST PA AND LAT 2 VIEW dated 06/28/2010 FINDINGS: Lines: None. Lungs: No evidence of edema or pneumonia. Pleural: No significant pleural effusions or pneumothorax. Cardiac: The heart size is within normal limits. Bones: No acute fractures. Other: IMPRESSION: No acute cardiopulmonary disease.
--- NOTE | 2021-09-07 17:05 | RAD REPORT ---
EXAM DESCRIPTION: RAD - Sacrum And Coccyx - 09/07/2021 4:48 pm CLINICAL HISTORY: fall COMPARISON: No comparisons FINDINGS: No acute fracture. No malalignment. No significant focal degenerative changes. IMPRESSION: No acute osseous abnormality involving the sacrum or coccyx.
[2021-09-07] MEDS: ENOXAPARIN 40 MG/0.4 ML SQ SCH (17:40)
--- NOTE | 2021-09-07 18:10 | RAD REPORT ---
EXAM DESCRIPTION: MRI - Brain Wo Cont - 09/07/2021 5:21 pm CLINICAL HISTORY: syncope COMPARISON: No comparisons TECHNIQUE: Sagittal T1-weighted images were obtained along with PD/heavily T2-weighted and T2-FLAIR images. Axial DWI and ADC mapping sequences were also obtained along with coronal heavily T2-weighted images were obtained. FINDINGS: No intracranial hemorrhage, mass or acute infarction. There is no edema or shift of midlin e structures. No extra-axial fluid collections. Signal voids are seen as a normal finding in the pascual r intracranial vessels. Mild chronic small vessel ischemic changes. Mastoid air cells and paranasal sinuses are clear. IMPRESSION: No acute intracranial abnormality. Specifically, no evidence of acute infarct. Mild cork tile floor layer swathi small vessel ischemic changes.
[2021-09-07] MEDS ORDERED: POTASSIUM CL SA 10 MEQ TAB PO ONE (20:00)
[2021-09-07] MEDS ORDERED: TRAMADOL HCL 50 MG TAB PO PRN (20:38)
[2021-09-08 04:11] LABS: Absolute Lymphocytes (CBC) 2.3 K/uL (0.7-4.9); Basophils % 0.6 % (0-1.3); Hematocrit 37.2 % (36.0-45.0); Lymphocytes % 36.1 % (15.3-44.8); MPV 9.3 fL (7.6-11.3); RBC Red Blood Cell Count 4.13 M/uL (3.86-4.86)
[2021-09-08 04:14] LABS: Potassium 4.4 mmol/L (3.5-5.1)
[2021-09-08] MEDS ORDERED: COSYNTROPIN 0.25 MG VIAL IV SCH (09:00)
[2021-09-08] MEDS ORDERED: VALSARTAN 160 MG TAB PO SCH (09:00)
[2021-09-08] MEDS ORDERED: BUPROPRION HCL S.R. 150MG TAB PO SCH (09:00)
[2021-09-08] MEDS ORDERED: BISOPROLOL 5 MG TABLET PO SCH (09:00)
[2021-09-08] MEDS: ENOXAPARIN 40 MG/0.4 ML SQ SCH (09:00)
[2021-09-08] MEDS ORDERED: CLOPIDOGREL 75 MG TABLET PO SCH (09:00)
[2021-09-08] MEDS ORDERED: DULOXETINE 30 MG CAP PO SCH (09:00)
[2021-09-08] MEDS ORDERED: ROSUVASTATIN 10 MG TAB PO SCH (09:00)
[2021-09-08 09:30] LABS: Urine Appearance CLEAR (Clear); Urine Bilirubin NEGATIVE (Negative); Urine Blood NEGATIVE (Negative); Urine Color YELLOW (Yellow); Urine Glucose NEGATIVE (Negative); Urine Protein NEGATIVE (Negative); Urine Urobilinogen 0.2 mg/dL (0.2-1.0); Urine pH 6.5 (5.0-7.0)
[2021-09-08 09:35] LABS: Urine Microscopic Reflex ORDER UMIC
[2021-09-08 09:56] LABS: Urine Bacteria <20 /HPF (<20); Urine Mucus 1+ /HPF (NONE SEEN); Urine RBC <5 /HPF (NONE SEEN)
[2021-09-08 10:27] VITALS: O2SAT 96
[2021-09-08 16:19] VITALS: BP 138/65; TEMP 98
--- NOTE | 2021-09-08 17:52 | P.DS ---
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 HER MRI BRAIN IS NEGATIVE. SHE HAS PAIN FROM FALL BUT NO BROKEN BONES. ACTH TEST IS NEGATIVE SO FAR. SHE WILL NOT DRIVE AND USE WALKER ALL THE TIME NOW. SHE IS ALSO ASKED NOT TO STAND FOR MORE THAN 10 MINUTES HER BP WILL DROP. I CHANGED FROM PROPRANOLOL TO BISOPROLOL TO CUT DOWN DYSAUTONOMIA. SHE WILL SEE NEURO ON OP BASIS. DR. DONATO IS [place] OF [place]. Vital Signs/Physical Exam: Temp Pulse Resp BP Pulse Ox 98.0 F 57 16 138/65 97 09/08/21 16:00 09/08/21 16:00 09/08/21 16:00 09/08/21 16:00 09/08/21 16:00 Laboratory Data at Discharge: WBC 6.50 K/uL (4.3-10.9) 09/08/21 03:25 Hgb 12.4 g/dL (12.0-15.0) 09/08/21 03:25 Hct 37.2 % (36.0-45.0) 09/08/21 03:25 Plt Count 155 K/uL (152-406) 09/08/21 03:25 PT 11.9 SECONDS (9.5-12.5) 09/07/21 15:42 INR 1.03 09/07/21 15:42 APTT 33.1 SECONDS (24.3-36.9) 09/07/21 15:42 Sodium 143 mmol/L (136-145) 09/08/21 03:25 Potassium 4.4 mmol/L (3.5-5.1) 09/08/21 03:25 BUN 18 mg/dL (7-18) 09/08/21 03:25 Creatinine 0.85 mg/dL (0.55-1.3) 09/08/21 03:25 Glucose 98 mg/dL (74-106) 09/08/21 03:25 Phosphorus 2.8 mg/dL (2.5-4.9) 09/07/21 15:42 Magnesium 1.9 mg/dL (1.8-2.4) 09/07/21 15:42 Total Bilirubin 0.4 mg/dL (0.2-1.0) 09/07/21 15:42 AST 15 U/L (15-37) 09/07/21 15:42 ALT 21 U/L (12-78) 09/07/21 15:42 Alkaline Phosphatase 59 U/L (45-117) 09/07/21 15:42 Home Medications: Buproprion S.r. [Wellbutrin Sr*] 150 mg PO BID 09/07/21 Clopidogrel Bisulfate [Plavix*] 75 mg PO DAILY 09/07/21 Duloxetine HCl [Cymbalta] 30 mg PO DAILY 09/07/21 Olmesartan Medoxomil [Benicar] 40 mg PO DAILY 09/07/21 Pantoprazole [Protonix Tab*] 40 mg PO DAILY 09/07/21 Rosuvastatin Calcium 10 mg PO DAILY 09/07/21 hydrOXYzine HCL [Atarax*] 25 mg PO BEDTIME 09/07/21 Polyethyl Gly 3350 [Glycolax*] 17 gm PO BEDTIME PRN PRN udbot 09/08/21 bisoproloL fumarate [Zebeta*] 10 mg PO DAILY #90 tablet 09/08/21 New Medications: bisoproloL fumarate [Zebeta*] 10 mg PO DAILY #90 tablet Followup: Anthony Bedolla MD [Family Provider] -
[2021-09-08] MEDS ORDERED: hydrOXYzine HCL 25 MG TAB PO SCH (21:00)
[2021-09-13 09:46] LABS: Vitamin D 1,25-Dihydroxy Total 45 pg/mL (18-72); Vitamin D,1,25-OH2, D2 <8 pg/mL
== END 2021-09-08 17:07 | disposition home or self-care (01) ==
LOC: EDSTATUS 12:28 → 2ND 14:25
PROVIDERS: ADMIT Internal Medicine; ATTEND Internal Medicine
DX: I95.1 Orthostatic hypotension (principal); I10 Essential (primary) hypertension; I25.10 Atherosclerotic heart disease of native coronary artery without angina pectoris; E11.9 Type 2 diabetes mellitus without complications; K21.9 Gastro-esophageal reflux disease without esophagitis; Z20.822 Contact with and (suspected) exposure to COVID-19
CPT/HCPCS: 87040; 87088; 85025 ×2; 87086; 80048 ×2; 36415 ×2; 83735; 84100; 85610; 82947; 80076; 85730; 82652; 84443; 82607; 82533 ×4; 82024; 71046; 72220; 72170; 73030; 70551; 97116; 97161; U0003; J0834; J1650 ×2; G0378 ×3; 81003; 81015

== ENCOUNTER 2023-12-26 12:18 | Day surgery (SDC) | payer OTHER ==
[2023-12-26] MEDS ORDERED: KETOROLAC 30 MG/ML INJ ONE (12:46)
[2023-12-26] MEDS ORDERED: LIDOCAINE 1% MPF 5 ML VIAL ONE (12:46)
[2023-12-26] MEDS ORDERED: ONDANSETRON 4 MG/2 ML VIAL ONE (12:46)
[2023-12-26] MEDS ORDERED: propofoL 200 MG/20 ML VIAL IV ONE (12:47)
[2023-12-26] MEDS ORDERED: FENTANYL CITR 100 MCG/2 ML ONE (12:47)
[2023-12-26] MEDS: NA CHLORIDE 0.9% 1,000 ML ONE (13:00)
[2023-12-26] MEDS: CEFAZOLIN SODIUM 1 GM/VIAL ONE (14:20)
[2023-12-26] MEDS ORDERED: GLYCOPYRROLATE 0.2 MG/ML SYR ONE (14:44)
[2023-12-26] MEDS: MORPHINE 4 MG/ML SYR ONE (15:05)
[2023-12-26 15:23] VITALS: O2SAT 100
--- NOTE | 2023-12-26 15:35 | OP ---
Date of Procedure: 12/26/2023 Surgeon: Barrett Maldonado MD Preoperative Diagnoses: Right carpal tunnel syndrome with right fourth trigger digit. Postoperative Diagnoses: Right carpal tunnel syndrome with right fourth trigger digit. Procedures: 1.Right fourth trigger digit release. 2.Right open carpal tunnel release. Estimated Blood Loss: Less than 3 cc. Complications: There were no complications. Specimens: No pathology specimens sent. Indication For Operation: Patient is an 78-year-old who unfortunately suffers with pain as well as n umbness and tingling of the first 3 digits of her right hand. She does have NCV which demonstrate ca rpal tunnel syndrome. She also demonstrates pain in the region of the A1 kurtis as well as triggerin g of the fourth digit. Risks, benefits, and alternatives of different methods of treating this were discussed with the patient. She states she understands things as presented, however, would like to h ave operative intervention of both problems. These are specifically discussed. She states she under stands things as presented and agrees to proceed. Description Of Procedure: Patient was taken to the operating room, placed in supine position and gen eral anesthesia was obtained by Anesthesia staff. Following this, a well-padded tourniquet was place d on superior right arm. Right upper extremity was then prepped and draped in the usual fashion for the procedure. Following this, the arm was then elevated, but not exsanguinated. Tourniquet was foster sed. A transverse incision was made directly over the A1 kurtis carefully through the skin only. Me ticulous hemostasis being maintained using bipolar electrocautery. Further dissection was all done b kaleytlabelardo, which allowed for visualization of the A1 kurtis as well as tendon and tendon sheath. The A1 kurtis was then divided at its midsubstance and continued in a proximal to distal direction until th ere were no constricting bands. It was then divided in a distal to proximal direction until there we re no constricting bands. At no time, were any sharp instruments were placed outside the operative f ield. After this, the finger was brought through range of motion with normal tendon motion and the i ncision was closed. Attention was then turned to the carpal tunnel where a standard incision was mad e which parallels the thenar crease with a slight ulnar deviation at the most distal wrist crease. T his was taken down carefully through skin only. Meticulous hemostasis being maintained using bipolar electrocautery. This leads down the palmar fascia, which was divided longitudinally and any obstruc tions of the transverse carpal ligament were then gently swept to the side. After this, an incision was made in the transverse carpal ligament which allowed for visualization of underlying carpal tunne l structure and this was expanded in a proximal to distal direction until there were no constricting bands. It was then continued in a distal to proximal direction until there were no constricting band s with release of some volar forearm fascia. At the conclusion, the median nerve was in continuity. There were no instruments placed outside the direct visual field. The incisions had been closed and the patient was placed in a well-padded sterile dressing, awakened, and taken to recovery room in go od condition. There were no complications. /GIUSEPPE Voice ID: [id number] Report ID: [id number]
[2023-12-26] MEDS: HYDROCODONE/APAP 7.5/325 MG TAB ONE (16:30)
[2023-12-26 18:27] VITALS: BP 135/53; TEMP 97.3
== END 2023-12-26 16:45 | disposition home or self-care (01) ==
LOC: OR 12:18
PROVIDERS: ATTEND Orthopaedic Surgery
PROC: 0LN70ZZ Release Right Hand Tendon, Open Approach (ICD-10-PCS; principal; 2023-12-26 14:00)
PROC: 01N50ZZ Release Median Nerve, Open Approach (ICD-10-PCS; 2023-12-26 14:00)
DX: G56.01 Carpal tunnel syndrome, right upper limb (principal); M65.341 Trigger finger, right ring finger; I10 Essential (primary) hypertension; E11.9 Type 2 diabetes mellitus without complications; E78.5 Hyperlipidemia, unspecified; K21.9 Gastro-esophageal reflux disease without esophagitis; F32.A Depression, unspecified; F41.9 Anxiety disorder, unspecified; I25.10 Atherosclerotic heart disease of native coronary artery without angina pectoris
CPT/HCPCS: 82947 ×2; 26055; 64721; J2704; J2001; J3010; J2405; J7030; J0690

== ENCOUNTER 2024-02-13 08:23 | Day surgery (SDC) | payer OTHER ==
[2024-02-08 09:47] LABS: Absolute Basophils 0.1 K/uL (0-0.5); Absolute Eosinophils 0.3 K/uL (0-0.5); Absolute Monocytes 0.7 K/uL (0.1-1.3); Absolute Neutrophil 4.2 K/uL (1.8-8.0); Basophils % 0.9 % (0-1.3); Eosinophils % 4.1 % (0-4.4); Hematocrit 38.9 % (36.0-45.0); Lymphocytes % 27.3 % (15.3-44.8); MCHC 33.4 g/dL (32.0-36.0); MCV 86.9 fL (80-100); MPV 8.8 fL (7.6-11.3); Monocytes % 9.2 % (3.3-12.3); Neutrophils % 58.5 % (41.7-73.7); Platelets 203 thou/uL (152-406); RBC Red Blood Cell Count 4.48 M/uL (3.86-4.86); Red Cell Distribution Width 15.2 % (12.1-15.2)
[2024-02-08 09:54] LABS: PT Prothrombin Time 10.9 SECONDS (9.5-12.5); PTT, Activated Partial Thromb 33.1 SECONDS (24.3-36.9); Protime INR 0.99
[2024-02-08 09:59] LABS: Anion Gap 4.9 mEq/L (5.0-15.0); Potassium 3.9 mEq/L (3.5-5.1)
--- NOTE | 2024-02-08 15:00 | EKG ---
Test Date: 2024-02-08 Test Time: 09:11:17 Sr. Merchandise Planner: CHERYLE MEASUREMENT RESULTS: Intervals: Rate: 65 NC: 184 QRSD: 80 QT: 426 QTc: 443 [place]: P: 11 NC: 184 QRS: -4 T: 38 INTERPRETIVE STATEMENTS: Sinus rhythm with premature atrial complexes Possible Left atrial enlargement Anterior infarct, age undetermined Abnormal ECG No previous ECG available for comparison Electronically Signed On 02-08-24 14:59:17 CDT by Loi Ruggiero
[2024-02-13] MEDS ORDERED: CEFAZOLIN SODIUM 1 GM/VIAL ONE (08:42)
[2024-02-13] MEDS: NA CHLORIDE 0.9% 1,000 ML ONE (08:55)
[2024-02-13] MEDS ORDERED: propofoL 200 MG/20 ML VIAL IV ONE (09:45)
[2024-02-13] MEDS ORDERED: ONDANSETRON 4 MG/2 ML VIAL ONE (09:45)
[2024-02-13] MEDS ORDERED: LIDOCAINE 2% MPF 5 ML VIAL ONE (09:46)
[2024-02-13] MEDS ORDERED: FENTANYL CITR 100 MCG/2 ML ONE (09:46)
[2024-02-13] MEDS ORDERED: dexAMETHasone 4 MG/ML VIAL ONE (10:50)
[2024-02-13] MEDS ORDERED: EPHEDRINE SULF 50 MG/ML VIAL ONE (10:51)
[2024-02-13] MEDS: HYDROMORPHONE HCL 1 MG/ML INJ ONE (11:40)
[2024-02-13 13:05] VITALS: BP 135/46; TEMP 97; O2SAT 98
--- NOTE | 2024-02-13 22:29 | OP ---
Date of Procedure: 02/13/2024 Surgeon: Barrett Maldonado MD Preoperative Diagnosis: Left carpal tunnel syndrome. Postoperative Diagnosis: Left carpal tunnel syndrome. Procedure: Left open carpal tunnel release. Estimated Blood Loss: Less than 3 cc. Complications: There were no complications. Specimens: No pathology specimen sent. Indication For Operation: The patient is an 78-year-old female who unfortunately has been suffering from left hand numbness and pain for some time. She has had NCV, which demonstrate carpal tunnel syn drome on the left. Risks, benefits, and alternatives of different methods of treating this have been discussed with the patient. She states she understands things as presented and wishes to proceed. Description Of Procedure: Patient was taken to the operating room, placed in supine position. Gener al anesthesia was easily obtained by the Anesthesia staff. Following this, a well-padded tourniquet was placed on superior left arm. Left upper extremity was then prepped and draped in usual sterile f ashion for procedure. Arm was then elevated, but not exsanguinated. Tourniquet was raised. A stand kathleen incision was made, which parallels the thenar crease with slight ulnar deviation at the most dist al wrist crease. This was taken down carefully through skin only. Meticulous hemostasis being maint ained using bipolar electrocautery. The palmar fascia was then divided longitudinally and any obstru ctions over the transverse carpal ligament were then moved to the side. A small soun was made in the transverse carpal ligament, which allowed for visualization of underlying nerve and carpal tunnel st ructures. It was then released in a proximal to distal direction until there were no constricting ba nds. It was then released from distal to proximal direction until there were no constricting bands a nd including a good deal of volar forearm fascia. At the conclusion of the case, the median nerve ap peared to be intact and completely decompressed. At no time were any sharp instruments placed outsid e the direct visual field. The tourniquet was dropped and there was no significant bleeding. The sk in was closed. The patient was placed in a well-padded sterile dressing, awakened, and taken to paco very room in good condition. There were no complications. /MODL Voice ID: [id number] Report ID: [id number]
== END 2024-02-13 12:37 | disposition home or self-care (01) ==
LOC: OR 08:23
PROVIDERS: ATTEND Orthopaedic Surgery
PROC: 01N50ZZ Release Median Nerve, Open Approach (ICD-10-PCS; principal; 2024-02-13 09:45)
DX: G56.02 Carpal tunnel syndrome, left upper limb (principal); I10 Essential (primary) hypertension; E11.9 Type 2 diabetes mellitus without complications; E78.5 Hyperlipidemia, unspecified; I25.10 Atherosclerotic heart disease of native coronary artery without angina pectoris; F41.9 Anxiety disorder, unspecified; K21.9 Gastro-esophageal reflux disease without esophagitis
CPT/HCPCS: 93005; 85025; 80048; 36415; 85610; 82947 ×2; 85730; 64721; J2704; J1100; J2001; J3010; J1170; J2405; J7030; J0690